=== PATIENT | female | born 1945 | race African-American/Black ===

== ENCOUNTER 2020-09-19 18:58 | Emergency (ER) | payer OTHER ==
[2020-09-19 19:21] VITALS: TEMP 98; BMI 37.5
[2020-09-19 20:08] LABS: EOS % 0.3 % (0-4.5); HEMOGLOBIN 12.8 GM/dl (10.7-15.3); RBC 4.85 M/mm3 (3.60-5.2)
[2020-09-19 20:15] LABS: BASO % 1.6 % (0-2.0); HEMATOCRIT 39.9 % (32.4-45.2); LYMPH % 16.8 % (8-40); MCH 26.4 pg (25.7-33.7); MEAN CELL VOLUME 82.4 fl (80-96); MEAN PLT VOLUME 8.2 fl (7.5-11.1); MONO % 5.6 % (3.8-10.2); NEUT % 75.7 % (42.8-82.8); PLATELET COUNT 212 K/MM3 (134-434); WHITE BLOOD COUNT 8.9 K/mm3 (4.0-10.8)
[2020-09-19 20:24] LABS: ALBUMIN 3.4 g/dl (3.4-5.0); ALK PHOS 81 U/L (45-117); ANION GAP 13 MMOL/L (8-16); BILIRUBIN,TOTAL 0.9 mg/dl (0.2-1); CALCIUM 9.7 mg/dl (8.5-10); CHLORIDE 106 mmol/L (98-107); CO2 19 mmol/L (21-32); GLUCOSE,RANDOM 271 mg/dl (74-106); SGOT/AST 39 U/L (15-37); SGPT/ALT 29 U/L (13-61); SODIUM 138 mmol/L (136-145); TOT PROT 6.9 g/dl (6.4-8.2)
[2020-09-19 20:56] LABS: LIPASE 97 U/L (73-393)
[2020-09-19 22:05] LABS: LACTIC ACID 3.8 mmol/L (0.4-2.0)
[2020-09-19] MEDS ORDERED: SODIUM CHLORIDE 1,000 ML IV ONE (22:10)
[2020-09-19] MEDS ORDERED: ONDANSETRON 4 MG/2 ML VIAL IVPB ONE (22:30)
[2020-09-19] MEDS ORDERED: ONDANSETRON 4 MG/2 ML VIAL ONE (22:31)
[2020-09-19] MEDS ORDERED: ENOXAPARIN NA (PORCINE) 100 MG/1 ML DISP.SYRIN SQ ONE ×2 (22:31→22:41)
[2020-09-19 22:37] VITALS: BP 109/36; PULSE 94
[2020-09-19 23:09] LABS: EPITHELIAL CELLS FEW /hpf
[2020-09-20] MEDS ORDERED: ENOXAPARIN NA (PORCINE) 100 MG/1 ML DISP.SYRIN SQ SCH (11:00)
== END 2020-09-19 23:18 | disposition expired ==
LOC: SUPCPDRO 18:58 → FER 18:58
PROC: 3E033NZ Introduction of Analgesics, Hypnotics, Sedatives into Peripheral Vein, Percutaneous Approach (ICD-10-PCS; principal; 2020-09-19)
PROC: 3E0337Z Introduction of Electrolytic and Water Balance Substance into Peripheral Vein, Percutaneous Approach (ICD-10-PCS; 2020-09-19)
DX: R09.02 Hypoxemia (principal); R79.1 Abnormal coagulation profile; R79.89 Other specified abnormal findings of blood chemistry
CPT/HCPCS: 36415; 71045-TC-FY; 80053; 81003; 81015; 82550; 83605; 83690; 84484; 85025; 85379; 93005; 93970-TC; 99285-25; C9803; U0003; U0005